=== PATIENT | male | born 1950 | race Caucasian/White ===

== ENCOUNTER → 2019-03-07 | Outpatient (CLI) | payer MEDICARE, BC | LOC: M.WC 08:00 | DX: L97.512 Non-pressure chronic ulcer of other part of right foot with fat layer exposed (principal); G60.3 Idiopathic progressive neuropathy; L84 Corns and callosities; M10.9 Gout, unspecified; G47.30 Sleep apnea, unspecified ==

== ENCOUNTER → 2019-03-14 | Outpatient (CLI) | payer MEDICARE, BC, OTHER | LOC: M.WC 04:19 | DX: L97.511 Non-pressure chronic ulcer of other part of right foot limited to breakdown of skin (principal); L84 Corns and callosities; G60.3 Idiopathic progressive neuropathy; G62.9 Polyneuropathy, unspecified; G47.30 Sleep apnea, unspecified; M10.9 Gout, unspecified ==

== ENCOUNTER → 2019-03-21 | Outpatient (CLI) | payer MEDICARE, BC, OTHER | LOC: M.WC 04:42 | DX: L97.512 Non-pressure chronic ulcer of other part of right foot with fat layer exposed (principal); L84 Corns and callosities; G60.3 Idiopathic progressive neuropathy; G47.30 Sleep apnea, unspecified; M10.9 Gout, unspecified ==

== ENCOUNTER → 2019-03-28 | Outpatient (CLI) | payer MEDICARE, BC, OTHER | LOC: M.WC 05:11 | DX: L97.511 Non-pressure chronic ulcer of other part of right foot limited to breakdown of skin (principal); L84 Corns and callosities; G60.3 Idiopathic progressive neuropathy; G47.30 Sleep apnea, unspecified; M10.9 Gout, unspecified ==

== ENCOUNTER → 2019-04-04 | Outpatient (CLI) | payer MEDICARE, BC, OTHER | LOC: M.WC 04:40 | DX: L97.511 Non-pressure chronic ulcer of other part of right foot limited to breakdown of skin (principal); L84 Corns and callosities; G60.3 Idiopathic progressive neuropathy; G47.30 Sleep apnea, unspecified; M10.9 Gout, unspecified ==

== ENCOUNTER → 2019-04-11 | Outpatient (CLI) | payer MEDICARE, BC, OTHER | LOC: M.WC 04:56 | DX: L97.518 Non-pressure chronic ulcer of other part of right foot with other specified severity (principal); L84 Corns and callosities; G60.3 Idiopathic progressive neuropathy; G47.30 Sleep apnea, unspecified; M10.9 Gout, unspecified ==